=== PATIENT | male | born 1985 | race Caucasian/White ===

== ENCOUNTER 2017-09-13 01:19 | Emergency (ER) | payer MEDICAID ==
[~2017-09-13] VITALS: Ht 177.8 cm; Wt 82.0 kg
[2017-09-13] MEDS ORDERED: KETOROLAC TROMETHAMINE 60 MG/2 ML VIAL IM ONE (02:30)
[2017-09-13 04:00] VITALS: BP 124/74
== END 2017-09-13 04:14 | disposition home or self-care (01) ==
LOC: EMS 01:22
DX: S50.312A Abrasion of left elbow, initial encounter (principal); S50.311A Abrasion of right elbow, initial encounter; S23.3XXA Sprain of ligaments of thoracic spine, initial encounter; I10 Essential (primary) hypertension; F17.210 Nicotine dependence, cigarettes, uncomplicated; V03.10XA Pedestrian on foot injured in collision with car, pick-up truck or van in traffic accident, initial encounter; V03.99XA Pedestrian with other conveyance injured in collision with car, pick-up truck or van, unspecified whether traffic or nontraffic accident, initial encounter; Y93.89 Activity, other specified; Y92.89 Other specified places as the place of occurrence of the external cause; Y99.8 Other external cause status
CPT/HCPCS: 72040; 72070; 72100; 96372; 99284; 99406; J1885